=== PATIENT | male | born 1960 | race Caucasian/White ===

== ENCOUNTER → 2017-01-21 | Outpatient (CLI) | payer BC ==
[~2017-01-21] VITALS: Ht 167.6 cm; Wt 95.3 kg
[~2017-01-21] MED LIST: LO-DOSE ASPIRIN81 M2 PO; PRAVACHOL10 MG PO; PRAVACHOL40 MG PO; PRINIVIL10 MG PO
== END | disposition home or self-care (01) ==
LOC: AMB 08:57
PROC: 0DJD8ZZ Inspection of Lower Intestinal Tract, Via Natural or Artificial Opening Endoscopic (ICD-10-PCS; principal; 2017-01-21)
DX: Z12.11 Encounter for screening for malignant neoplasm of colon (principal); E78.5 Hyperlipidemia, unspecified; I10 Essential (primary) hypertension; Z86.010 Personal history of colon polyps; Z79.82 Long term (current) use of aspirin; Z80.42 Family history of malignant neoplasm of prostate; Z82.3 Family history of stroke; Z82.49 Family history of ischemic heart disease and other diseases of the circulatory system; Z83.518 Family history of other specified eye disorder
CPT/HCPCS: 93005; J2704